=== PATIENT | female | born 1945 | race African-American/Black ===

== ENCOUNTER 2017-01-18 11:47 | Emergency (ER) | payer OTHER, MEDICARE ==
[~2017-01-18] VITALS: Ht 152.4 cm; Wt 77.1 kg
[~2017-01-18 11:47] MED LIST: FOLIC ACID 1 MG PO; MAG-OX 400400 MG PO; NORVASC 5MG TAB5 MG PO; Theragran Vitamins PO; VITAMIN B1100 MG PO
--- NOTE | 2017-01-18 13:25 | RADIOLOGY REPORT ---
EXAMINATION: XR HIP, RIGHT CLINICAL INFORMATION: Right hip pain after fall 4 months ago. Evaluate for old fracture. COMPARISON: None TECHNIQUE: Pelvis, AP view Right hip, AP and frog-leg lateral views FINDINGS: There is degenerative disc space narrowing, vertebral osteophyte formation and facet arthropathy of the lower lumbar spine. The osseous pelvic ring is intact. There is enthesophyte formation in multiple locations, including iliac crests, greater trochanters and ischial tuberosities. No evidence of a recent pelvic bone injury or proximal femoral fracture. At the right hip, there is mild narrowing of superior joint space and osteophyte formation. At the left hip, there is [id number] superior joint space narrowing and osteophyte formation. Peripheral vessels are calcified. Phleboliths are present in the lower pelvis. A row of sutures projects over the midline of the pelvis. IMPRESSION: 1. No evidence of recent osseous injury in the pelvis or proximal femurs. 2. Osteoarthritis of the hips (left slightly worse than right).
[2017-01-18 14:53] VITALS: BP 165/67
[2017-01-18] MEDS ORDERED: BACTRIM DS TAB1 EACH PO (15:08)
--- NOTE | 2017-01-18 15:08 | ED GENERAL ADULT ---
History of Present Illness General Chief Complaint: Lower Extremity Problems Stated Complaint: HIP PAIN XS 4 MONTHS Source: patient Exam Limitations: no limitations Vital Signs & Intake/Output Vital Signs & Intake/Output Vital Signs Date Time Temp Pulse Resp B/P Pulse O2 O2 Flow FiO2 Ox Delivery Rate 01/18 1453 98.3 90 18 165/67 98 Room Air 01/18 1157 98.2 115 16 148/71 99 Room Air Allergies Coded Allergies: NO KNOWN ALLERGIES (11/18/11) Reconcile Medications Ondansetron (Zofran Odt) 4 MG TAB.RAPDIS 1 TAB SL TID nausea Sulfamethoxazole/Trimethoprim (Bactrim Ds Tablet) 800 MG-160 MG TABLET 1 TAB PO BID uti Triage Note: PT STATES SHE FELL A FEW MONTHS AGO AND SHE CONT. TO HAVE RIGHT HIP PAIN. Triage Nurses Notes Reviewed? yes Onset: Abrupt Duration: 4 months Injury Environment: home Severity: moderate, severe No Modifying Factors: none HPI: 71-year-old female comes into emergency room with increasing right hip pain for the past 4 months. Patient had fallen to 4 months ago onto her right hip. Patient has been having pain since then getting progressively worse. She also has had some urinary incontinence for the past week. She denies any head trauma or injury anywhere else on her body. Denies any recent falls or trauma. Patient comes in for further evaluation. Sharp throbbing pain. Continuous. Nonradiating. (DEMIAN DICKENS) Past History Travel History Traveled to [place] past 21 day No Medical History Any Pertinent Medical History? see below for history Cardiovascular: HEART MURMUR History of MRSA: No History of VRE: No History of CDIFF: No Surgical History Surgical History: non-contributory Psychosocial History Who do you live with Son Services at Home None What is your primary language Bulgarian Tobacco Use: Current Daily Use Daily Tobacco Use Amount/Type: => 5 Cigarettes daily ETOH Use: alcoholic Illicit Drug Use: denies illicit drug use Family History Hx Contributory? No (DEMIAN DICKENS) Review of Systems Review of Systems Constitutional: Reports: no symptoms. EENTM: Reports: no symptoms. Respiratory: Reports: no symptoms. Cardiovascular: Reports: no symptoms. GI: Reports: no symptoms. Genitourinary: Reports: see HPI. Musculoskeletal: Reports: see HPI. Skin: Reports: no symptoms. Neurological/Psychological: Reports: no symptoms. Hematologic/Endocrine: Reports: no symptoms. Immunologic/Allergic: Reports: no symptoms. All Other Systems: Reviewed and Negative (DEMIAN DICKENS) Physical Exam Physical Exam General Appearance: well developed/nourished, alert, awake, mild distress Head: atraumatic, normal appearance Eyes: Bilateral: normal appearance, EOMI. Ears, Nose, Throat: normal pharynx, normal ENT inspection, hearing grossly normal Neck: normal inspection, full range of motion Respiratory: no respiratory distress Gastrointestinal: soft, non-tender Extremities: pain with range of motion of right hip, no shortening, Neurologic/Psych: awake, alert, oriented x 3, normal gait, normal mood/affect Skin: intact, normal color Core Measures ACS in differential dx? No CVA/TIA Diagnosis: No Severe Sepsis Present: No Septic Shock Present: No (DEMIAN DICKENS) Progress Differential Diagnoses I considered the following diagnoses in my evaluation of the patient: Arthritis , hip fracture, bursitis, muscle strain, UTI, Plan of Care: Orders Procedure Date/time Status Add-on Test (ER Only) 01/18 1449 Active CULTURE,URINE 01/18 1411 Active URINALYSIS 01/18 1356 Complete Laboratory Tests 01/18/17 1411: Urinalysis LIGHT H, Urine Color YEL, Urine Clarity CLDY H, Urine pH 6.0, Ur Specific [place] <= 1.005, Urine Protein NEG, Urine Ketones NEG, Urine Nitrite NEG, Urine Bilirubin NEG, Urine Urobilinogen 1.0, Ur Leukocyte Esterase LARGE H , Ur Microscopic SEDIMENT EXAMINED, Urine RBC 3-5, Urine WBC > 75 H, Ur Epithelial Cells MOD H, Urine Bacteria MANY H, Urine Hemoglobin SMALL H, Urine Glucose NEG Microbiology 01/18 1411 URINE ROUT: Urine Culture - RECD Diagnostic Imaging: Viewed by Me: Radiology Read. Discussed w/RAD: Radiology Read. Radiology Impression: SERVICE DATE: 01/18/17-1222 EXAM TYPE: RAD - XRY-HIP 2-3 VIEWS, RIGHT EXAMINATION: XR HIP, RIGHT CLINICAL INFORMATION: Right hip pain after fall 4 months ago. Evaluate for old fracture. COMPARISON: None TECHNIQUE: Pelvis, AP view Right hip, AP and frog-leg lateral views FINDINGS: There is degenerative disc space narrowing, vertebral osteophyte formation and facet arthropathy of the lower lumbar spine. The osseous pelvic ring is intact. There is enthesophyte formation in multiple locations, including iliac crests, greater trochanters and ischial tuberosities. No evidence of a recent pelvic bone injury or proximal femoral fracture. At the right hip, there is mild narrowing of superior joint space and osteophyte formation. At the left hip, there is mild-to -moderate superior joint space narrowing and osteophyte formation. Peripheral vessels are calcified. Phleboliths are present in the lower pelvis. A row of sutures projects over the midline of the pelvis. IMPRESSION: 1. No evidence of recent osseous injury in the pelvis or proximal femurs. 2. Osteoarthritis of the hips (left slightly worse than right). DICTATED BY: YOUSUF SOUZA MD DATE/TIME DICTATED:01/18/171317 WEAVING PROFESSOR:HEIDI DATE/TIME TRANSCRIBED:1317 Initial ED EKG: none Comments: 01/18/2017 4:48:23 PM Patient was seen by case management. Patient is to be set up with home health aide. Patient treated for uncomplicated UTI. Patient does not want anything for pain control. Patient will get an evaluation by physical therapy at home. Able to ambulate here. Safe to be discharged this time. Case discussed with Dr. lynn. (DEMIAN DICKENS) Departure Departure Disposition: HOME OR SELF CARE Condition: Stable Clinical Impression Primary Impression: UTI (urinary tract infection) Secondary Impressions: Arthritis Referrals: DANIELLE CANALES,SU Colindres (PCP/Family) Additional Instructions: Take Bactrim as prescribed. Follow-up with your primary care doctor. Return if any concerns worsening symptoms. Please go over all results of today's visit with your primary care doctor. Contact your primary care doctor to let them know you were here in the emergency room. There may be nonspecific findings which may not be related to your visit today here in the emergency room but may require further evaluation and chronic monitoring by your primary care doctor. If you had a laceration today the chance of foreign body always remains. You should follow-up with your primary care doctor for recheck in 3-5 days for a wound check. If you had an x-ray done there is a chance that a fracture could have been missed on initial read and you should follow-up with your primary care doctor for repeat x-rays if symptoms persist. If your blood pressure was elevated here in the emergency room please have rechecked by her primary care doctor within the next 48 hours by your primary care doctor. If you were prescribed a narcotic here in the emergency room or any type of controlled substances you're not allowed to drive while taking this medication or operate any type of heavy machinery. Narcotics can make you feel lightheaded dizziness nausea and can cause constipation. You may need to pharmacy picking tech a stool softener. Thank you for choosing [facility] emergency room. Please return to the emergency room immediately if you have any other concerns worsening of symptoms. Departure Forms: Customer Survey General Discharge Information Prescriptions: Current Visit Scripts Sulfamethoxazole/Trimethoprim (Bactrim Ds Tablet) 1 TAB PO BID #14 TAB Ondansetron (Zofran Odt) 1 TAB SL TID #10 TAB (DEMIAN DICKENS) PA/GENERATING STATION MECHANIC Co-Sign Statement Statement: ED Attending supervision documentation- x I saw and evaluated the patient. I have also reviewed all the pertinent lab results and diagnostic results. I agree with the findings and the plan of care as documented in the PA's/GENERATING STATION MECHANIC's documentation. [] I have reviewed the ED Record and agree with the PA's/GENERATING STATION MECHANIC's documentation. [] Additions or exceptions (if any) to the PAs/GENERATING STATION MECHANIC's note and plan are summarized below: [] (OCTAVIANO CANALES,JANICE) Critical Care Note Critical Care Note Critical Care Time: non-applicable (DEMIAN DICKENS)
[2017-01-18] MEDS ORDERED: ZOFRAN ODT4 M1 SL (15:30)
--- NOTE | 2017-01-18 16:20 | NUR ---
Case Mgmnt TSF: I had gone in and introduced myself to patient and son. They are fine with whatever HHS we choose. I gave them our brochure and my card. I set them with up with [facility] for start of service on 01/19/17. I asked them for RN, PT and EDUCATIONAL GUIDANCE COUNSELOR. I spoke with Brianna. I faxed over all clinical and received fax confirmation back. CM complete.
== END 2017-01-18 15:25 ==
LOC: ERH 11:47
DX: N39.0 Urinary tract infection, site not specified (principal); M16.11 Unilateral primary osteoarthritis, right hip
CPT/HCPCS: 73502-RT; 81001; 87086

== ENCOUNTER 2017-01-19 16:01 | Inpatient (IN) | payer OTHER, MEDICARE ==
[~2017-01-19] VITALS: Ht 152.4 cm; Wt 77.1 kg
[~2017-01-19 16:01] MED LIST changes: +BACTRIM DS TAB1 EACH PO; +ZOFRAN ODT4 M1 SL
--- NOTE | 2017-01-19 16:19 | NUR ---
PT TO TRIAGE WITH C/O R HIP PAIN S/P R HIP GAVE UP AND SHE FELL LAST NIGHT. PT DENIES HEAD STRIKE. PT WAS SEEN HERE IN ER YESTERDAY BEFORE FALL FOR R HIP PAIN.
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
--- NOTE | 2017-01-19 19:09 | NUR ---
PT SEEN BY GENO MEJIA. PLAN TO KEEP IN ED UNTIL PHYSICAL THERAPY EVAL CAN BE DONE IN THE AM. INFORMED PT WE WILL MOVE HER TO A ROOM WHEN AVAILABLE.
--- NOTE | 2017-01-19 19:09 | NUR ---
TWO ATTEMPTS MADE BY TEENA OG FOR LAB WORK. PT DIFFICULT IV STICK
--- NOTE | 2017-01-19 19:57 | NUR ---
PT INCONTINENT OF URINE. WEARING DEPENDS. PT STOOD PIVOTED TO STRETCHER WITH TWO PERSON MODERATE ASSIST. PT HAD DIFFICULTY GOING FROM SIT TO STAND AND HAD DIFFICULTY TURNING TO GET ONTO STRETCHER. [facility] DONE AND PT CHANGED INTO HOSPTIAL GOWN. BLUE PAD PLACED UNDER PT. RED SOCKS PLACED ON PT DUE TO HIGH RISK FOR FALLS. PT NOTED TO HAVE OVERGROWN TOE NAILS AND DRY FLAKY SKIN UNDER SOCKS SHE WAS WEARING. PT STATES SHE CANNOT CHANGE SOCKS OR BATH HER FEET
[2017-01-19 20:19] LABS: ABSOLUTE BASOPHIL COUNT 0 /CUMM (0.0-0.2); ABSOLUTE EOSINOPHIL COUNT 0.1 /CUMM (0.0-0.7); ABSOLUTE GRANULOCYTE CT 5.4 /CUMM (1.4-6.5); ABSOLUTE LYMPH COUNT 1.4 /CUMM (1.2-3.4); ABSOLUTE MONOCYTE COUNT 0.4 /CUMM (0.10-0.60); BASOPHIL % 0 % (0.0-2.0); EOSINOPHIL % 1.3 % (0-5); GRANULOCYTE % 73.6 % (42.2-75.2); HEMATOCRIT 25.5 % (37-47); MEAN CORPUSCULAR HGB 30.1 PG (27.0-31.0); MEAN CORPUSCULAR VOLUME 94.2 FL (81.0-99.0); MEAN PLATELET VOLUME 7.2 FL (7.4-10.4); PLATELET COUNT 257 /CUMM (130-400); RBC DISTRIBUTION WIDTH 22.2 % (11.5-14.5); RED BLOOD CELL CT 2.71 /CUMM (4.20-5.40); WHITE BLOOD CELL COUNT 7.3 /CUMM (4.8-10.8)
--- NOTE | 2017-01-19 21:26 | NUR ---
PT MOVED TO ROOM 2. AND TRANSFERRED TO HOSP BED
--- NOTE | 2017-01-19 21:33 | CT SCAN REPORT ---
EXAMINATION: CT PELVIS WITHOUT CONTRAST CLINICAL INFORMATION: Fall, unable to bear weight COMPARISON: CT 03/22/2014 TECHNIQUE: Helical scanning was performed with submillimeter collimation through the pelvis. Sagittal and coronal multiplanar 2-D reconstructions were obtained. FINDINGS: This exam is demonstrating sclerotic change in the inferior ischium on the left near the midline pubic bone. This is new from 2013. Findings suggest stress injury or subacute fracture. No acute fracture is seen here. There is significant degeneration in the left hip with degenerative cystic formation on both sides of the joint. More mild change in the right hip. In the pelvis once again prominent uterus for age lies to the left of midline. No free fluid in the deep pelvis. Some mild adenopathy once again seen. IMPRESSION: Findings in the left ischium near the pubic bone as described above. Suggest stress fracture or subacute healing fracture. No convincing evidence for an acute fracture here. Significant degeneration left hip..
[2017-01-19 21:45] VITALS: BP 180/72
--- NOTE | 2017-01-19 21:52 | History & Physical ---
YUKI CANALES,[facility] 01/19/172: General Information and HPI History of Present Illness: Ms. Arroyo is a 71-year-old lady with a PMH signifciant for ETOH abuse, GERD, diverticulosis, HTN, morbid obesity s/p gastric bypass in 2003, last admitted to [facility] in 2013 for decompensation, who presents with progressively worsening right hip pain and weakness for the past month. She presented to [facility] ED yesterday with the same chief complaint and was sent home on Bactrim for UTI upon a negative hip x-ray. Following the discharge last night patient had an episode of a mechanical fall when her her legs gave out and landed on her right hip. Denies any chest pain, palpitations, dizziness or lightheadedness prior to the fall and at the time of interview. No loss of consciousness or head trauma. Prior to this episode, most recently fell about 4 months ago. Has been home since then and never sought medical attention. Uses no walkign aids at baseline. For the past month, her ambulation has been decreasing due to weakness. She has been receiving home physical therapy until it got discontinued recently because her doctor signed off after patient failed to follow up since 2013. Patient's son brought the patient back to the ED today in concern for her unsafe ambulation in the context of recurrent falls and worsening weakness. ROS signifcant for dysuria for a few days and chronic urinary incontinence at baseline. On , patient lives at home alone. She drinks 1.5-2 pines of alcohol everyday. She is a chronic drinker/smoker (1 PPD). She went through rehab many years ago without success. Denies illicit drug use. CT scan done in ED revealed stress injury or subacute fracture in the left hip but no acute fracture is seen here. 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 She was admitted for evaluation of weakness and intratable pain in the right hip. This exam is demonstrating sclerotic change in the inferior ischium on the left near the midline pubic bone. This is new from 2014. Findings suggest stress injury or subacute fracture. No acute fracture is seen here. There is More mild change in the right hip. In the pelvis once again prominent uterus for age lies to the left of midline. No free fluid in the deep pelvis. Some mild adenopathy once again seen. PCP - Dr. Santos Full code. Allergies/Medications Allergies: Coded Allergies: Penicillins (Intermediate, HIVES 01/19/17) Home Med list Ondansetron (Zofran Odt) 4 MG TAB.RAPDIS 1 TAB SL TID nausea Sulfamethoxazole/Trimethoprim (Bactrim Ds Tablet) 800 MG-160 MG TABLET 1 TAB PO BID uti Past History Travel History Traveled to [place] past 21 day No Medical History Cardiovascular: HEART MURMUR History of MRSA: No History of VRE: No History of CDIFF: No Surgical History Surgical History: non-contributory Past Family/Social History Psychosocial History Where do you live? Home Services at Home: None ETOH Use: heavy use Review of Systems Review of Systems Constitutional: Reports: see HPI. Exam & Diagnostic Data Last 24 Hrs of Vital Signs/I&O Vital Signs Date Time Temp Pulse Resp B/P B/P Pulse O2 O2 Flow FiO2 Mean Ox Delivery Rate 01/20 2148 98.9 120 20 180/72 96 Room Air 01/19 2145 98.9 120 20 180/72 01/198 Room Air 01/19 1618 97.3 99 18 195/75 98 Room Air Physical Exam General Appearance Alert, Oriented X3, Cooperative, No Acute Distress Skin No Rashes, No Breakdown, No Significant Lesion HEENT Atraumatic, PERRLA, EOMI Neck Supple, No JVD, No thryomegaly Cardiovascular Regular Rate, Normal S1, Normal S2, No Murmurs, Gallops, Rubs Lungs Clear to Auscultation, Normal Air Movement Abdomen Normal Bowel Sounds, Soft, No Tenderness Neurological Normal Speech, Sensation Intact, Cranial Nerves 3-12 NL, Strength 1 -2 out of 5 in RLE due to severe pain Extremities No Cyanosis, Trace edema in BLE, Mild erythema in distal LLE, TTP in R hip Vascular Normal Pulses, Pulses Symmetrical Assessment/Plan Assessment: Ms. Arroyo is a 71-year-old lady with a PMH signifciant for ETOH abuse, GERD, diverticulosis, HTN, morbid obesity s/p gastric bypass in 2003, last admitted to [facility] in 2013 for decompensation, who presents with progressively worsening right hip pain and weakness for the past month. # Intractable hip pain CT scan done in ED revealed stress injury or subacute fracture in the left hip but no acute fracture is seen here. 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 * Admit to service * Vitals per protocol * Adequate pain control * MRI of the hip to r/o fracture * Repeat right hip x-ray since she fell again * Ortho consult * PT consult # UTI * Cont Bactrim 1 tab BID (started on 01/18) * Keep monitoring for signs of infection * Follow urine culture and blood cultures # HTN Patient carries a h/o HTN but stopped taking antihypertensives at home. May be further elevated currently due to alcohol withdrawal vs. pain. * Give Norvasc 5mg PO once for now and keep monitoring * Control pain and give Ativan as needed per [facility] # Alcohol abuse * Ativan per [facility] protocol * Monitor BP closely # Chronic anemia H/H has been downtrending since 2013. Fe studies at that time normal. There may be component of EtOH abuse. * Repeat iron studies * Check CBC daily, trend H/H - transfuse if Hgb < 8 - Heart healthy diet - Moderate pain pathway - DVTppx with [facility] - Full code. As Ranked By This Provider Problem List: 1. UTI (urinary tract infection) 2. Arthritis 3. Chronic hip pain 4. Gait instability Core Measures/Miscellaneous Acute Coronary Syndrome ACS Diagnosis: No Cerebrovascular Accident CVA/TIA Diagnosis: No Congestive Heart Failure CHF Diagnosis: No Venous Thromboembolism VTE Risk Factors: Age > 40 No [facility] VTE prophylaxis d/t: LE Injury, current No VTE Pharm Prophylaxis d/t: No contraindications VTE Diagnosis: No VTE Type: NONE VTE Confirmed by (Test): NONE Severe Sepsis Severe Sepsis Present: No Septic Shock Septic Shock Present: No Miscellaneous Documentation Attending Case Discussed With: Dr. Arroyo Primary Care Physician: SU SANTOS MD Patient sees these Specialists HPI Level of Patient Care: General Medicine GRAZYNA CANALES,JLUIS 01/19/178: Resident Review Statement Resident Statement: examined this patient, discussed with landscape maintenance internship Other Findings: Patient is a 71-year-old lady whose medical issues include morbid obesity, 60+ pack year smoking history currently smoking 1 pack per day, daily 2 pints of alcohol use no history of withdrawal seizures presents to the emergency room after a fall. She states that her initial fall was 4 months ago and she fell on the right hip. She has been doing okay at home ambulating independently. Yesterday she felt weak and had a fall came to the emergency room for evaluation. She was discharged with home physical therapy, while she was here yesterday she also complained of hesitancy and burning subsequently found to have a UTI which is currently being treated with Bactrim. States that yesterday after she got discharged from the hospital she fell again at 2 AM while trying to use the bathroom. The home health aide saw her this morning and home PT was unwilling to work with her given her recurrent falls and recommended that she come to the emergency room for further evaluation. Her only complaint at present is right hip pain. Denies any chest pain, shortness of breath, nausea, vomiting, diarrhea fevers or chills. Also admits to burning and increased urinary frequency. Physical exam Blood pressure 180/72, pulse rate 120, chest abdomen and lung exam is benign; tenderness to palpation over right hip, positive SLR on the right at 15, decreased flexion of the right hip, pulses are normal and intact, 2+ lower extremity edema bilaterally EKGs within normal limits, no change since previous recent Labs are within normal limits, AST to ALT ratio 2:1, alcohol level less than 10 CAT scan of the pelvis is suggestive of stress fracture in the left ischium or the pubic bone, significant degeneration of left Assessment- 1. Hip pain, likely secondary to subacute left ischium stress injury or fracture 2. Urinary tract infection 3. Morbid obesity 4. Chronic nicotine abuse 5. Chronic alcohol use 6. Chronic anemia 7. Hypokalemia Plan- GEN med admit Vitals per protocol PT evaluation in the morning Follow urine culture (sent on 01/18/2017) IV ceftriaxone 1 gm q 24 Pain management CIWA protocol Nicotine patch 21 mcg daily Replete potassium Add on Magnesium, TSH, free T4, B12, folic acid, Vit D Pain pathway Regular diet DVT PPX with SC heparin Full code DAHLIARACHELLE 01/20/17 0212: Attending MD Review Statement Attending Statement Attending MD Statement: examined this patient, discuss w/resident/PA/CHARGE AUTHORIZER, agreed w/resident/PA/CHARGE AUTHORIZER, reviewed EMR data (avail), reviewed images, amended to note Attending Assessment/Plan: CC: right hip pain, unable to ambulate PMH: Alcoholism, diverticulosis, hypertension, history of gastric bypass surgery , GERD, noncompliance, currently not on any medications Patient was in ER yesterday for right hip pain, chronic in nature, had a fall 4 months back, has been ambulating less since then, her sons insisted to go to ER so she came to ER yesterday. She was evaluated with right hip x-ray, was sent home on home health services. After going home patient had another fall, accidental, again right hip pain worsened so she came to ER. At baseline patient mostly in on recliner, couch, ambulates to bathroom by herself but since yesterday she was requiring 2 assistance to go to bathroom. She was diagnosed to have hypertension in the past, stopped taking medications since unknown duration. She does not take any vitamin supplementations after gastric bypass surgery, does not follow with PCP. She denies any chest pain, palpitations, shortness of breath, headache, loss of consciousness, dizziness before or after fall. Denies any abnormal bleeding in bowel movement, vaginal bleed, blood in urine, no history of vomiting. Significant alcohol and smoking history Vitals: Afebrile, mild tachycardia, hypertensive 195/75, saturating well on room air On exam: A O 3, cooperative, no acute distress, neck supple, no JVD, no lymphadenopathy, mucosa moist, no focal neurological deficit, no tremors, +2 pitting edema bilateral lower extremities, mild redness on right lower extremity over her banks otherwise no obvious skin rashes or inflammation, right hip movement is restricted with active range of motion, tenderness lateral side of hip, not on groin, no warmth or redness. CVS: S1-S2, RRR. RS: Clear to auscultate bilaterally. Abdomen: Soft, NT, ND, bowel sounds present. Labs: Hemoglobin 8.2, RDW 22.7, MCV 94.2, platelet 257, BUN 5, magnesium 1.3, alkaline phosphatase 190. Otherwise BMP, LFT unremarkable Pelvic CT: 1. Findings in the left ischium near the pubic bone as described above. Suggest stress fracture or subacute healing fracture. No convincing evidence for an acute fracture here. Significant degeneration left hip. 2. prominent uterus for age lies to the left of midline. Some mild adenopathy once again seen. A and P Patient has intractable pain in right hip, after trauma. Even though x-ray done yesterday when in ER did not show any acute changes, patient had a fall again. CT pelvis mentions subacute healing fracture on left ischium, which may not be contributing to this pain. Patient is also found to have UTI, with symptoms of urinary frequency and burning, and urine positive for gram-negative rods. # Right hip pain: ? Bursitis, ? Musculoskeletal r/o fracture # UTI with cystitis # Alcoholism # Morbid obesity # Anemia # Noncompliance with history of hypertension # History of gastric bypass surgery - Admit to general medicine - Adequate pain control - Repeat x-ray right hip - Consider MRI if right hip x-rays normal - OT PT evaluation - Orthopedic consult - Continue Bactrim by mouth for UTI - Small dose CCB, for hypertension. - Obtain iron studies - Watch for alcohol withdrawal: When necessary and scheduled Ativan according to CIWA score, by mouth thiamine, folic acid, vitamin B12, vitamin D supplementation - Patient has elevated alkaline phosphatase, increased total proteins and globulin, significant anemia: Consider SPEP and UPEP inpatient versus outpatient for further evaluation - Case management consult for short-term rehabilitation versus home health services
--- NOTE | 2017-01-19 22:04 | NUR ---
PT INCONTINENT OF URINE. PT UNABLE TO VOID ON BEDPAN FOR SPECIMEN. PT REFUSING IN AND OUT CATH FOR URINE SPECIMEN. DR ZAMORA AWARE
--- NOTE | 2017-01-19 22:05 | NUR ---
IV STARTED BY SOBIA LORENZO
[2017-01-20] VITALS (9 sets, daily range): BP systolic 124–200; BP diastolic 58–90
--- NOTE | 2017-01-20 00:07 | NUR ---
report to jose LORENZO
--- NOTE | 2017-01-20 02:14 | Admission Certification ---
Admission Certification Certification Statement - As attending physician, I certify that at the time of - admission, based on clinical presentation, severity of - symptoms, need for further diagnostic testing and - therapeutic interventions, and risk of adverse outcomes - without in-hospital treatment, in my clinical assessment, - this patient requires an acute hospital stay for a minimum - of two nights or longer. I have also considered psychsocial - factors such as support system, advanced age, financial - issues, cognitive issues, and failed out-patient treatments, - past re-admission history, safety of patient, and lack of - compliance as applicable. Specific rationale supporting this admission is: Right hip pain, unable to ambulate
--- NOTE | 2017-01-20 08:30 | NUR ---
PT LEFT FLOOR VIA STRETCHER TO X-RAY.
--- NOTE | 2017-01-20 09:20 | PN- Housestaff ---
See Addendum VANGIE CANALES,ISMAIL 01/20/17 0919: Subjective Follow-up For: # Right hip pain: # UTI with cystitis # Alcoholism # Morbid obesity # Anemia # Noncompliance with history of hypertension # History of gastric bypass surgery Subjective: Afebrile with multiple WBCs. Elevated blood pressure, she is not on any antihypertensive medication for long time. Patient reported polyuria overnight. Her pain is well controlled, pain only gets aggravated when she tried to ambulate. He shouldn't denies any other current complaints. Review of Systems Constitutional: Reports: no symptoms. Objective Last 24 Hrs of Vital Signs/I&O Vital Signs Date Time Temp Pulse Resp B/P B/P Pulse O2 O2 Flow FiO2 Mean Ox Delivery Rate 01/20 0946 100 160/70 97 Room Air 01/20 0800 Room Air 01/20 0638 99.1 102 20 176/74 95 Room Air 01/20 0600 98.4 78 18 182/74 01/20 0400 98.4 78 18 182/74 01/20 0259 70 182/74 01/20 0200 98.4 78 18 200/90 01/20 0152 200/90 01/20 0030 98.4 78 20 200/90 94 Room Air 01/19 2148 98.9 120 20 180/72 96 Room Air 01/19 2145 98.9 120 20 180/72 01/19 2128 Room Air 01/19 1618 97.3 99 18 195/75 98 Room Air Intake & Output 01/20 1600 01/20 0800 01/20 0000 Intake Total 300 Output Total 100 Balance -100 300 Intake, IV 200 Intake, Oral 100 Number 1 0 Bowel Movements Output, Urine 100 Patient 77.111 kg 77.111 kg Weight Weight Reported by Patient Reported by Patient Measurement Method Physical Exam General Appearance: Alert, Oriented X3, Cooperative, No Acute Distress HEENT: Atraumatic, PERRLA, EOMI, Mucous Membr. moist/pink Cardiovascular: Regular Rate, Normal S1, Normal S2, No Murmurs Lungs: Clear to Auscultation, Normal Air Movement Abdomen: Soft, No Tenderness Neurological: Normal Speech, he did range of motion on the right hip because of pain Extremities: No Clubbing, No Cyanosis, No Edema Current Medications: Current Medications Sig/Faiza Start time Last Medication Dose Route Stop Time Status Admin Acetaminophen 650 MG Q6P PRN 01/19 2245 AC PO Acetaminophen/ 1 TAB Q6P PRN 01/19 2245 AC Hydrocodone Bitart PO Amlodipine Besylate 5 MG ONCE ONE 01/20 0100 DC 01/20 PO 01/20 0101 0152 Calcium 600 MG BID 01/20 1000 AC PO Cholecalciferol 2,000 IU DAILY 01/20 1000 AC 01/20 PO 0937 Cyanocobalamin 1,000 MCG DAILY 01/20 1000 AC 01/20 PO 0937 Cyanocobalamin 1,000 MCG ONCE ONE 01/20 0930 DC IM 01/20 0931 Ergocalciferol 50,000 IU Q168 01/20 1000 AC 01/20 PO 0940 Ferrous Sulfate 325 MG DAILY 01/20 1000 AC PO Folic Acid 1 MG DAILY 01/20 1000 AC 01/20 PO 0937 Heparin Sodium 5,000 UNIT Q8 01/20 0600 AC 01/20 (Porcine) SC 0527 Lorazepam 0 Q1P PRN 01/19 2245 AC IV Magnesium Sulfate 1 GM Q2H 01/20 0015 DC 01/20 Dextrose/Water 100 ML IV 01/20 0414 0245 Multivitamins 1 TAB DAILY 01/20 1000 AC 01/20 PO 0937 Nicotine 21 MG DAILY 01/20 1000 AC TOP Oxycodone/ 2 TAB Q6P PRN 01/19 2245 AC Acetaminophen PO Potassium Chloride 0 .STK-MED ONE 01/19 2258 DC PO Potassium Chloride 40 MEQ ONCE ONE 01/19 2245 DC 01/19 PO 01/19 2246 225 Thiamine HCl 100 MG DAILY 01/20 1000 AC 01/20 PO 0937 Trimethoprim/ 1 TAB BID 01/20 1000 AC 01/20 Sulfamethoxazole PO 0936 Trimethoprim/ 0 .STK-MED ONE 01/19 1914 DC Sulfamethoxazole PO Trimethoprim/ 1 TAB ONCE ONE 01/19 1900 DC 01/19 Sulfamethoxazole PO 01/19 1901 191 Last 24 Hrs of Lab/Timo Results Last 24 Hrs of Labs/Mics: Laboratory Tests 01/19/17 2004: Anion Gap 15, Estimated GFR > 60, BUN/Creatinine Ratio 7.1, Glucose 91, Calcium 7.9 L, Magnesium 1.3 L, Iron 33 L, TIBC 421, Ferritin 10.5 L, Total Bilirubin 1.1, AST 45 H, ALT 25, Alkaline Phosphatase 190 H, Total Protein 8.8 H, Albumin 4.2, Globulin 4.6 H, Albumin/Globulin Ratio 0.9 L, Vitamin B12 195 L, 25-OH Vitamin D Total 4.9 L, Folate 3.5, TSH 1.960, Free T4 1.26, CBC w Diff NO MAN DIFF REQ, RBC 2.71 L, MCV 94.2, MCH 30.1, RDW 22.2 H, MPV 7.2 L, Gran % 73.6, Lymphocytes % 19.8 L, Monocytes % 5.3, Eosinophils % 1.3, Basophils % 0 L, Absolute Granulocytes 5.4, Absolute Lymphocytes 1.4, Absolute Monocytes 0.4, Absolute Eosinophils 0.1, Absolute Basophils 0, PUBS MCHC 32.0 L , Serum Alcohol < 10.0 Microbiology 01/19 2355 BLOOD: Blood Culture - RECD 01/19 2350 BLOOD: Blood Culture - RECD Assessment/Plan Assessment: # Intractable hip pain CT scan done in ED revealed stress injury or subacute fracture in the left hip but no acute fracture is seen here. 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 * Percocet 2 tablets by mouth every 6 when necessary or pain 7-10 * V codeine 1 tablet E0 every 6 urine for pain 4-6 * Acetaminophen 650 mg by mouth every 6 when necessary for pain less than 4 * Three-view right hip X-ray, Zoloft pending * We'll follow PT and orthopedic recommendations # UTI * Continue Bactrim 1 tab BID (started on 01/18) * Keep monitoring for signs of infection * Follow urine culture and blood cultures # HTN He has a history of hypertension , she is not on medication for long time. Her blood pressure is improving without and hypertensive medication, however it still above 160. Part of this can be from alcohol detox * Will start metoprolol 12.5 mg twice a day. * Hold medication for blood pressure less than 100 # Alcohol detox * Ativan per [facility] protocol * Multivitamin, folic acid, thiamine. * Monitor BP closely #Normocytic anemia Patient has a low ferritin and serum iron(supposed to be microcytic), she also has a low B12(supposed to give microcytic) most likely the makes of these 2 give her normocytic anemia. * We will start iron supplement * We will start B12 supplement * Check CBC daily and follow anemia and infection Heart healthy diet Moderate pain pathway DVTppx with [facility] Full code. Problem List: 1. Gait instability 2. Arthritis 3. UTI (urinary tract infection) Pain Ratin Pain Location: right hip Pain Goal: Remain pain free Pain Plan: See assessment and plan Tomorrow's Labs & Rationales: CBC BRITTNY CUNNINGHAM 01/20/17 1057: Attending MD Review Statement Attending Statement Attending MD Statement: examined this patient, discuss w/resident/PA/EMBLEM CUTTER, agreed w/resident/PA/EMBLEM CUTTER, discussed with family, reviewed EMR data (avail), discussed with nursing, discussed with case mgmt, reviewed images, amended to note Attending Assessment/Plan: "Patient has intractable pain in right hip, after trauma. Even though x-ray done yesterday when in ER did not show any acute changes, patient had a fall again. CT pelvis mentions subacute healing fracture on left ischium, which may not be contributing to this pain. Patient is also found to have UTI, with symptoms of urinary frequency and burning, and urine positive for gram-negative rods. " ASSESSMENT # Right hip pain s/p trauma and fall. # UTI with cystitis # Alcoholism # Morbid obesity BMI 33.2 # Anemia multifactorial iron defeciency, Vit B12 defeciency. # History of gastric bypass surgery # Hypocalcemia # Hypomagnesemia. # Generalised weakness/physical deconditioning. # Noncompliance with history of hypertension PLAN - pain control - OT PT evaluation - Orthopedic consult - f/u urine C/S and c/w PO bactrim. - correct lytes, added thiamine, folic acid, vitamin B12, vitamin D supplementation, calcium. - consult dietitian. - Case management consult for short-term rehabilitation versus home health services
--- NOTE | 2017-01-20 09:31 | NUR ---
THIS RN SPOKE WITH PATIENTS MIREYA IBARRA WHO LIVES IN [place] WHO EXPRESSED CONCERN FOR THE PATIENT'S SONS BRINGING THE PATIENT ETOH. THIS RN NOTIFIED MD VENCES, SPOKE WITH NURSING MANAGERS, AND OTHER STAFF MEMBERS ON THE FLOOR- WILL MONITOR THE PATIENT CLOSELY.
--- NOTE | 2017-01-20 09:42 | NUR ---
PT ARRIVED TO FLOOR VIA STRETCHER FROM X-RAY. WILL CONTINUE TO MONITOR.
--- NOTE | 2017-01-20 11:46 | RADIOLOGY REPORT ---
EXAMINATION: XR HIP, RIGHT CLINICAL INFORMATION: Recurrent fall. Evaluate for fracture. COMPARISON: Right hip films from 01/18/2017. TECHNIQUE: Frontal view of the pelvis and both hips. Coned-down frontal and frog-leg lateral view of the right hip. FINDINGS: No acute fracture or dislocation of the hips. Evaluation of the sacrum suboptimal due to overlapping structures. Both femoral heads normally located within the acetabula. Moderate degenerative change seen in the left hip joint and mild degenerative changes in the right hip joint with superior joint space narrowing, subchondral sclerosis and cystic changes seen. Sacroiliac joints and pubic symphysis intact and unremarkable. Enthesophyte formation seen along the iliac spines, pubic symphysis, and greater trochanters, unchanged. Mild degenerative spondylosis and moderate facet arthropathy are seen in the lower lumbar spine. Right paramedian pelvic wall sutures are in place. Pelvic phleboliths and arterial calcifications are noted. IMPRESSION: 1. No acute fracture or dislocation of the hips. 2. Moderate left and mild right sided degenerative joint disease involving both hips. 3. Diffuse idiopathic changes.
--- NOTE | 2017-01-20 20:38 | Cons- Orthopedic ---
General Information and HPI Consulting Request Date of Consult: 01/20/17 Requested By: BRITTNY CUNNINGHAM MD Reason for Consult: Right hip pain Source of Information: patient Exam Limitations: no limitations History of Present Illness: Patient is a 71-year-old woman who has history of multiple falls who complains of right hip pain. She was admitted for unrelated medical reasons and was found to have findings on CT scan consistent with a pelvic fracture on the left side. However, she complains only of the right hip. Pain is worsened with weightbearing and activities. No previous hip problems on the right side. Allergies/Medications Allergies: Coded Allergies: Penicillins (Intermediate, HIVES 01/19/17) Home Med List: Ondansetron (Zofran Odt) 4 MG TAB.RAPDIS 1 TAB SL TID nausea Sulfamethoxazole/Trimethoprim (Bactrim Ds Tablet) 800 MG-160 MG TABLET 1 TAB PO BID uti Past History Medical History Blood Transfusion Hx: No Neurological: NONE EENT: NONE Cardiovascular: hypertension, HEART MURMUR Respiratory: NONE Gastrointestinal: diverticulitis, GERD Hepatic: NONE Renal: NONE Musculoskeletal: NONE Psychiatric: alcohol dependence Endocrine: NONE Blood Disorders: NONE Cancer(s): NONE MANAGER FLOAT/Reproductive: NONE Surgical History Pertinent Surgical History: non-contributory Psychosocial History Where Do You Live? Home Services at Home: None Smoking Status: Current Everyday Smoker ETOH Use: heavy use Exam & Diagnostic Data Vital Signs and I&O Vital Signs Date Time Temp Pulse Resp B/P B/P Pulse O2 O2 Flow FiO2 Mean Ox Delivery Rate 01/20 1505 Room Air 01/20 1431 100 138/60 01/20 1411 99.1 100 20 138/60 99 Room Air 01/20 0946 100 160/70 97 Room Air 01/20 0800 Room Air 01/20 0638 99.1 102 20 176/74 95 Room Air 01/20 0600 98.4 78 18 182/74 01/20 0400 98.4 78 18 182/74 01/20 0259 70 182/74 01/20 0200 98.4 78 18 200/90 01/20 0152 200/90 01/20 0030 98.4 78 20 200/90 94 Room Air 01/19 2148 98.9 120 20 180/72 96 Room Air 01/19 2145 98.9 120 20 180/72 01/198 Room Air Intake & Output 01/20 1600 01/20 0800 01/20 0000 01/19 1600 01/19 0800 01/19 0000 Intake Total 480 300 Output Total 200 Balance 280 300 Intake, IV 0 200 Intake, Oral 480 100 Number 3 0 Bowel Movements Output, Urine 200 Patient 170 lb 170 lb Weight Weight Reported by Patient Reported by Patient Measurement Method Physical Exam: Patient was found in the supine position in bed. She appeared to be comfortable. Examination of the right lower extremity revealed no rotatory deformity. No leg length discrepancy. Nodefinite external trauma to the right side. Calf soft slightly sensitive to outpatient bilaterally. Gentle logroll internal and external rotation did not exacerbate her pain. Heel percussion did not cause any pain. Normal symmetric pulses distally. Normal gross sensation distally Imaging Results: I reviewed x-rays and CT scan. These revealed no definite acute fracture. There is appears to be subacute insufficiency fracture/stress fracture in the issue him on the left. There does appear to be irregularity on the right subtrochanteric area but I'm not sure whether this is artifact or real. Assessment/Plan Assessment/Plan Right hip pain-the plain x-rays and CT scan have not been definitive and patient has mechanical pain involving the right hip. I feel that she should have further evaluation including MRI to rule out an occult fracture or other lesion. Consult Acknowledgment - Thank you for your consult request.
[2017-01-21] VITALS (7 sets, daily range): BP systolic 120–146; BP diastolic 58–80
--- NOTE | 2017-01-21 00:49 | NUR ---
0030 PT FOUND TO BE SMOKING A CIGARETTE IN HER ROOM. CONFISCATED CIGARETTES AND GUN STOCK CHECKER. THEY ARE IN MED ROOM DRAWER. EDUCATED PT ON OUR POLICY. PT AGGITATED THAT CIGARETTES WERE TAKEN. EXPLAINED SHE WILL GET THEM UPON DISCHARGE. WILL MONITOR.
--- NOTE | 2017-01-21 07:20 | Discharge Summary ---
See Addendum Visit Information Visit Dates Admission Date: 01/19/17 Discharge Date: 01/23/17 Hospital Course Course Attending Physician: MARISA CANALES,BRITTNY Primary Care Physician: DANIELLE CANALES,SU [place] Hospital Course: This is a 71-year-old female with no significant past medical history except for acute and over alcohol consumption, who presented to the [facility] for very nonspecific complaints of pain in the right hip and generalized weakness. She was seen in the ER one night before admission and was sent home on antibiotics for UTI. Patient had a fall 4 months back, has been ambulating less since then, her sons insisted to go to ER so she came to ER . She was evaluated with right hip x-ray, was sent home on home health services. After going home patient had another fall, accidental, again right hip pain worsened so she came to ER. At baseline patient mostly in on recliner, couch, ambulates to bathroom by herself but since yesterday she was requiring 2 assistance to go to bathroom. She was diagnosed to have hypertension in the past, stopped taking medications since unknown duration. She does not take any vitamin supplementations after gastric bypass surgery, does not follow with PCP. She denies any chest pain, palpitations, shortness of breath, headache, loss of consciousness, dizziness before or after fall. Denies any abnormal bleeding in bowel movement, vaginal bleed, blood in urine, no history of vomiting. Significant alcohol and smoking history Vitals: Afebrile, mild tachycardia, hypertensive 195/75, saturating well on room air On exam: A O 3, cooperative, no acute distress, neck supple, no JVD, no lymphadenopathy, mucosa moist, no focal neurological deficit, no tremors, +2 pitting edema bilateral lower extremities, mild redness on right lower extremity over her banks otherwise no obvious skin rashes or inflammation, right hip movement is restricted with active range of motion, tenderness lateral side of hip, not on groin, no warmth or redness. CVS: S1-S2, RRR. RS: Clear to auscultate bilaterally. Abdomen: Soft, NT, ND, bowel sounds present. Labs: Hemoglobin 8.2, RDW 22.7, MCV 94.2, platelet 257, BUN 5, magnesium 1.3, alkaline phosphatase 190. Otherwise BMP, LFT unremarkable The patient was admitted in the hospital and was treated for the following problems 1. Acute healing fracture of the right hip 2. Subacute/stress fracture of the left hip 3.Acute urinary tract infection 4.MORBID OBESITY 5.Alcohol dependence 6. 1.8 cm mass on the cervix Hospital courses She was evaluated by orthopedics who did not feel that the patient has had any acute fractures for the left hip. We performed a MRI which showed Right healing fracture. After discussion of the options with the patient's family,patient and the orthopedics surgeon , patient was still not ready to consent to surgery stating for now that she does not want surgery on her hip. With respect to nonoperative management we did discuss prolonged weightbearing restrictions not allowing the patient weight-bear on the right lower extremity at all and that this would essentially restrict her to an out of bed to wheelchair existence, probably for several months.The patient was in agrrement for the conservative approach for the fracture. The patient seemingly will require transfer to a assisted facility for a while unless adequate home services and home support can be provided. The patient should be seen by Dr Lam in ([facility]) in about 3 weeks so that she can undergo repeat x-rays of the right hip to check the status of potential fracture healing activity. The patient or SNF should contact the office to have the patient seen sooner than this if there is any other concerns or problems that arise before then. For patient UTI she completed the 3 days of abx therapy with [id number]. Last dose of ABX was 01/21/17. On pelvic MRI she was found to have: Nonspecific 1.8 cm focal signal change within the cervix, not optimally characterized. Followup pelvic ultrasound may be considered for further full detail evaluation. Patient was instructed to follow with gynecology post discharge to further address this nonspecific finding. She would benfit from [facility] for regaing her Physical strength. Allergies: Coded Allergies: Penicillins (Intermediate, HIVES 01/19/17) Pertinent Lab Results: Laboratory Tests 01/23 0725 Chemistry Sodium (137 - 145 mmol/L) 140 Potassium (3.5 - 5.1 mmol/L) 4.1 Chloride (98 - 107 mmol/L) 110 H Carbon Dioxide (22 - 30 mmol/L) 21 L Anion Gap (5 - 16) 9 BUN (7 - 17 mg/dL) 6 L Creatinine (0.5 - 1.0 mg/dL) 0.9 Estimated GFR (>60 ml/min) > 60 BUN/Creatinine Ratio (7 - 25 %) 6.7 L Hematology CBC w Diff MAN DIFF ORDERED WBC (4.8 - 10.8 /CUMM) 4.7 L RBC (4.20 - 5.40 /CUMM) 2.63 L Hgb (12.0 - 16.0 G/DL) 8.0 L Hct (37 - 47 %) 24.8 L MCV (81.0 - 99.0 FL) 94.4 MCH (27.0 - 31.0 PG) 30.3 RDW (11.5 - 14.5 %) 21.4 H Plt Count (130 - 400 /CUMM) 204 MPV (7.4 - 10.4 FL) 7.2 L Gran % (42.2 - 75.2 %) 62.7 Lymphocytes % (20.5 - 51.1 %) 17.6 L Monocytes % (1.7 - 9.3 %) 14.4 H Eosinophils % (0 - 5 %) 5.3 H Basophils % (0.0 - 2.0 %) 0 L Absolute Granulocytes (1.4 - 6.5 /CUMM) 3.0 Absolute Lymphocytes (1.2 - 3.4 /CUMM) 0.8 L Absolute Monocytes (0.10 - 0.60 /CUMM) 0.7 H Absolute Eosinophils (0.0 - 0.7 /CUMM) 0.2 Absolute Basophils (0.0 - 0.2 /CUMM) 0 Platelet Estimate (ADEQUATE) ADEQUATE Hypochromic-Microcytic 1+ Poikilocytosis 2+ Anisocytosis 1+ PUBS MCHC (33.0 - 37.0 G/DL) 32.2 L Disposition Summary Disposition Principal Diagnosis: Acute fracture of the right hip Subacute/stress fracture of the left hip Additional Diagnosis: Alcohol dependence Urinary tract infection Chronic nicotine use Morbid obesity Discharge Disposition: SNF Discharge Instructions General Discharge Information Code Status: Full Code Patient's Diet: As tolerated Patient's Activity: As recommended by the physical therapy Follow-Up Instructions/Appts: Please follow-up the Omer Cope MD in 1 week of discharge Please follow-up with Dr. Alton Hernandez Also she'll need to follow up with [facility] as an outpatient for the incidental finding of nonspecific 1.8 cm focal signal change within the cervix on the MRI pelvis. Medications at Discharge Discharge Medications: Stop taking the following medications: Sulfamethoxazole/Trimethoprim (Bactrim Ds Tablet) 800 MG-160 MG TABLET ORAL TWICE DAILY Qty = 14 Continue taking these medications: Ondansetron (Zofran Odt) 4 MG TAB.RAPDIS 1 Tablet SUBLINGUAL THREE TIMES DAILY Qty = 10 Comments: NOT GIVEN IN HOSPITAL Start taking the following new medications: Metoprolol Tartrate (Metoprolol Tartrate) 25 MG TABLET 12.5 Milligram ORAL TWICE DAILY Qty = 30 No Refills Comments: Last Taken: 01/23/17 Time: 10AM Cyanocobalamin (Vitamin B-12) 1,000 MCG TABLET 1,000 Microgram ORAL DAILY Qty = 30 No Refills Comments: Last Taken: 01/23/17 Time: 10AM Folic Acid (Folic Acid) 1 MG TABLET 1 Milligram ORAL DAILY Qty = 30 No Refills Comments: Last Taken: 01/23/17 Time: 10AM Thiamine HCl (Vitamin B-1) 100 MG TABLET 100 Milligram ORAL DAILY Qty = 30 No Refills Comments: Last Taken: 01/23/17 Time: 10AM Multivitamin (One Daily Multivitamin) 1 EACH TABLET 1 Tablet ORAL DAILY Qty = 30 No Refills Comments: Last Taken: 01/23/17 Time: 10AM Ferrous Sulfate (Ferrous Sulfate) 325 MG (65 MG IRON) TABLET.DR 325 Milligram ORAL DAILY Qty = 30 No Refills Oxycodone HCl/Acetaminophen (Percocet 5-325 MG Tablet) 5 MG-325 MG TABLET 2 Tablet ORAL EVERY 8 HOURS NEEDED as needed for hip pain Qty = 12 No Refills Copies To: DANIELLE CANALES,SU [place]
[2017-01-21 07:42] LABS: ABSOLUTE BASOPHIL COUNT 0 /CUMM (0.0-0.2); ABSOLUTE EOSINOPHIL COUNT 0.1 /CUMM (0.0-0.7); ABSOLUTE GRANULOCYTE CT 2.7 /CUMM (1.4-6.5); ABSOLUTE LYMPH COUNT 1.1 /CUMM (1.2-3.4); ABSOLUTE MONOCYTE COUNT 0.5 /CUMM (0.10-0.60); BASOPHIL % 0 % (0.0-2.0); HEMATOCRIT 23.2 % (37-47); MEAN CORPUSCULAR HGB 30.5 PG (27.0-31.0); MEAN CORPUSCULAR HGB CONC 32.3 G/DL (33.0-37.0); MEAN CORPUSCULAR VOLUME 94.6 FL (81.0-99.0); MEAN PLATELET VOLUME 7.1 FL (7.4-10.4); PLATELET COUNT 228 /CUMM (130-400); RBC DISTRIBUTION WIDTH 22.4 % (11.5-14.5); RED BLOOD CELL CT 2.46 /CUMM (4.20-5.40); WHITE BLOOD CELL COUNT 4.4 /CUMM (4.8-10.8)
--- NOTE | 2017-01-21 07:45 | PN- Housestaff ---
VANGIE CANALES,[facility] 01/21/17 0745: Assessment/Plan Assessment: # Intractable hip pain CT scan done in ED revealed stress injury or subacute fracture in the left hip but no acute fracture is seen here. 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 * Percocet 2 tablets by mouth every 6 when necessary or pain 7-10 * Vcodeine 1 tablet every 6 hours for pain 4-6 * Acetaminophen 650 mg by mouth every 6 when necessary for pain less than 4 * MRI will be ordered as per orthopedic * PT recommended short-term rehabilitation # UTI * We'll DC trimethoprim sulfamethoxazole (started on 01/18) * Keep monitoring for signs of infection * Follow urine culture and blood cultures # HTN Patient was not on any antihypertensive medication when she presented to ED, we started her on metoprolol 12.5 mg twice daily to which her blood pressure was well controlled. * Continue metoprolol 12.5 mg twice a day. * Hold medication for blood pressure less than 100 # Alcohol detox * Ativan per [facility] protocol * Multivitamin, folic acid, thiamine. * Monitor BP closely #Normocytic anemia Patient has a low ferritin and serum iron(supposed to be microcytic), she also has a low B12(supposed to give microcytic) most likely the makes of these 2 give her normocytic anemia. * We will start iron supplement * We will start B12 supplement * Check CBC daily and follow anemia and infection #Hypocalcemia(corrected to albumin), with a low VIT D * Calcium supplement will be given * We will start 1000 vitamin D daily Heart healthy diet Moderate pain pathway DVTppx with SQH Full code. MARISAPEREZARTHUR 01/21/17 1116: Attending MD Review Statement Attending Statement Attending MD Statement: examined this patient, discuss w/resident/PA/ROPING MACHINE TENDER, agreed w/resident/PA/ROPING MACHINE TENDER, discussed with family, reviewed EMR data (avail), discussed with nursing, discussed with case mgmt, reviewed images, amended to note Attending Assessment/Plan: "Patient has intractable pain in right hip, after trauma. Even though x-ray done yesterday when in ER did not show any acute changes, patient had a fall again. CT pelvis mentions subacute healing fracture on left ischium, which may not be contributing to this pain. Patient is also found to have UTI, with symptoms of urinary frequency and burning, and urine positive for gram-negative rods. " ASSESSMENT # Right hip pain s/p trauma and fall. # UTI with cystitis # Alcoholism # Morbid obesity BMI 33.2 # Anemia multifactorial iron defeciency, Vit B12 defeciency. # History of gastric bypass surgery # Hypocalcemia # Hypomagnesemia. # Generalised weakness/physical deconditioning. # Noncompliance with history of hypertension PLAN - pain control - OT PT evaluation recommend STR - Orthopedic consulted recommend MRI pending. - f/u urine C/S and completed PO bactrim. - correct lytes, added thiamine, folic acid, vitamin B12, vitamin D supplementation, calcium. - Case management consult for short-term rehabilitation. d/c planning for weekend JANNETH MARQUES MD 01/21/17 1225: Subjective Follow-up For: # Right hip pain: # UTI with cystitis # Alcoholism # Morbid obesity # Anemia # Noncompliance with history of hypertension # History of gastric bypass surgery Subjective: Afebrile, WBCs WNL. Her BP was better controlled this am. Patient reported improvement of polyuria. Her pain is well controlled, pain only gets aggravated when she tried to ambulate. She denies any other current complaints. Review of Systems Constitutional: Reports: no symptoms. Objective Last 24 Hrs of Vital Signs/I&O Vital Signs Date Time Temp Pulse Resp B/P B/P Pulse O2 O2 Flow FiO2 Mean Ox Delivery Rate 01/21 1007 Room Air 01/21 0935 80 160/82 01/21 0619 98.8 83 20 120/60 98 Room Air 01/21 0600 99.2 79 18 124/58 01/21 0400 99.2 79 18 124/58 01/21 0200 99.2 79 18 124/58 01/21 0006 99.2 01/21 0000 99.2 79 18 124/58 01/20 2210 100.0 79 20 124/58 98 01/20 2041 130/70 01/20 1505 Room Air 01/20 1431 100 138/60 01/20 1411 99.1 100 20 138/60 99 Room Air Intake & Output 01/21 1600 01/21 0800 01/21 0000 Intake Total 120 Output Total 300 150 Balance -300 -30 Intake, Oral 120 Output, Urine 300 150 Physical Exam General Appearance: Alert, Oriented X3, Cooperative, No Acute Distress HEENT: Atraumatic, PERRLA, EOMI, Mucous Membr. moist/pink Cardiovascular: Regular Rate, Normal S1, Normal S2, No Murmurs Lungs: Clear to Auscultation, Normal Air Movement Abdomen: Normal Bowel Sounds, Soft, No Tenderness Neurological: Normal Speech Extremities: No Clubbing, No Cyanosis, trace edema Current Medications: Current Medications Sig/Faiza Start time Last Medication Dose Route Stop Time Status Admin Acetaminophen 650 MG Q6P PRN 01/19 2245 AC PO Acetaminophen/ 1 TAB Q6P PRN 01/19 2245 DC Hydrocodone Bitart PO Calcium 600 MG BID 01/20 1000 AC 01/21 PO 0935 Cholecalciferol 1,000 IU DAILY 01/20 1148 AC 01/21 PO 0935 Cyanocobalamin 1,000 MCG DAILY 01/20 1000 AC 01/21 PO 0935 Ergocalciferol 50,000 IU Q168 01/20 1000 AC 01/20 PO 0940 Ferrous Sulfate 325 MG DAILY 01/20 1000 AC 01/21 PO 0935 Folic Acid 1 MG DAILY 01/20 1000 AC 01/21 PO 0935 Heparin Sodium 5,000 UNIT Q8 01/20 0600 AC 01/21 (Porcine) SC 0612 Lorazepam 0 Q1P PRN 01/19 2245 AC IV Magnesium Sulfate 1 GM Q2H 01/21 0900 AC 01/21 Dextrose/Water 100 ML IV 01/21 1259 1229 Metoprolol Tartrate 12.5 MG BID 01/20 1147 AC 01/21 PO 0935 Multivitamins 1 TAB DAILY 01/20 1000 AC 01/21 PO 0935 Nicotine 21 MG DAILY 01/20 1000 AC TOP Oxycodone/ 1 TAB Q6P PRN 01/20 204 AC 01/20 Acetaminophen PO 204 Oxycodone/ 2 TAB Q6P PRN 01/19 224 AC Acetaminophen PO Patient Medication 1 ED .STK-MED ONE 01/20 1334 DC Teaching ED 01/20 1335 Thiamine HCl 100 MG DAILY 01/20 1000 AC 01/21 PO 0935 Trimethoprim/ 1 TAB BID 01/20 1000 AC 01/21 Sulfamethoxazole PO 0935 Last 24 Hrs of Lab/Timo Results Last 24 Hrs of Labs/Mics: Laboratory Tests 01/21/17 0610: Magnesium 1.6, CBC w Diff MAN DIFF ORDERED, RBC 2.46 L, MCV 94.6, MCH 30.5, RDW 22.4 H, MPV 7.1 L, Gran % 62.0, Lymphocytes % 25.7, Monocytes % 10.3 H, Eosinophils % 2.0, Basophils % 0 L, Absolute Granulocytes 2.7, Absolute Lymphocytes 1.1 L, Absolute Monocytes 0.5, Absolute Eosinophils 0.1, Absolute Basophils 0, Platelet Estimate ADEQUATE, Normocytic RBCs VERIFIED, Normochromic RBCs VERIFIED, Anisocytosis 1+, PUBS MCHC 32.3 L 01/20/17 2345: Urine Opiates Screen 112.00, Methadone Screen < 40, Barbiturate Screen < 60, Ur Phencyclidine Scrn < 6.00, Amphetamines Screen < 100, U Benzodiazepines Scrn < 85, Urine Cocaine Screen < 50, Urine Cannabis Screen < 5.00 Microbiology 01/20 2345 URINE ROUT: Urine Culture - RECD Assessment/Plan Problem List: 1. UTI (urinary tract infection) Pain Ratin Pain Location: right hep Pain Goal: Remain pain free Pain Plan: See A&P Tomorrow's Labs & Rationales: CBC
--- NOTE | 2017-01-21 10:44 | NUR ---
PHYSICAL THERAPY: ATTEMPTED TO SEE PT 5-7X THIS MORNING, EACH TIME FINDING NURSING IN ROOM OR AUTOMATIC DIE CUTTING MACHINE OPERATOR MOPPING FLOOR. PT IS NOW TEJA AT MRI. WILL FOLLOW UP LATER APPROPRIATE. THANK YOU.
[2017-01-21] MEDS ORDERED: ONE DAILY MULT1 EAC2 PO (12:21)
[2017-01-21] MEDS ORDERED: METOPROLOL TART25 M1 PO (12:21)
[2017-01-21] MEDS ORDERED: VITAMIN B-121000 MC3 PO (12:21)
[2017-01-21] MEDS ORDERED: VITAMIN B-1100 MG PO (12:21)
[2017-01-21] MEDS ORDERED: FOLIC ACID1 M1 PO (12:21)
--- NOTE | 2017-01-21 12:25 | Patient Discharge Instructions ---
Discharge Instructions General Discharge Information You were seen/treated for: UTI Hip pain because of old fracture Special Instructions: Please follow up with pcp within one week of DC Please repeat CBC at the short-term rehabilitation tomorrow morning Please follow with orthopedic within 1 week of discharge Please make appointment with gynecology to address the MRI finding on your cervix Acute Coronary Syndrome Inclusion Criteria At DC or during hospital stay patient has or had the following: ACS DIAGNOSIS No Discharge Core Measures Meds if any: Prescribed or Continued at Discharge Meds if any: NOT Prescribed or Continued at Discharge Congestive Heart Failure Inclusion Criteria At DC or during hospital stay patient has or had the following: CHF DIAGNOSIS No Discharge Core Measures Meds if any: Prescribed or Continued at Discharge Meds if any: NOT Prescribed or Continued at Discharge Cerebrovascular accident Inclusion Criteria At DC or during hospital stay patient has or had the following: CVA/TIA Diagnosis No Discharge Core Measures Meds if any: Prescribed or Continued at Discharge Meds if any: NOT Prescribed or Continued at Discharge Venous thromboembolism Inclusion Criteria VTE Diagnosis No VTE Type NONE VTE Confirmed by (Test) NONE Discharge Core Measures - Per Current guidelines, there needs to be overlap - treatment for the first 5 days of Warfarin therapy. - If discharged on Warfarin prior to 5 days of - overlap therapy, the patient will need to be - assessed for post discharge needs including - *Post discharge parental anticoagulation - *Warfarin and/or parental anticoagulation education - *Follow up date to check INR post discharge At least 5 days overlap therapy as Inpatient No Meds if any: Prescribed or Continued at Discharge Note: Overlap Therapy is Warfarin and Anticoagulant Meds if any: NOT Prescribed or Continued at Discharge
--- NOTE | 2017-01-21 13:57 | MRI REPORT ---
EXAMINATION: MR PELVIS WITHOUT CONTRAST CLINICAL INFORMATION: 71-year-old female with history of fall 4 months ago, presented with right hip pain. COMPARISON: Radiographs of the right hip done on 01/18/2017, CT of the pelvis done on 01/19/2017 and right hip radiograph done on 01/20/2017. TECHNIQUE: MRI of the pelvis without contrast was obtained using routine sequences. FINDINGS: There is a linear nondisplaced fracture identified in the region of the lesser trochanter of the right femur with significant bone marrow edema around the site of the fracture. A similar appearing fracture is also noted involving the left inferior pubic ramus, associated with adjacent bone marrow edema. Subtle focal area of nonspecific bone marrow edema is noted involving the left-sided ala of the sacrum adjacent to the SI joint (see the ferraro images). Possible differential diagnostic consideration would include posttraumatic changes versus insufficiency fracture or combination thereof, given the patient's history of fall 4 months ago. Incidental note is made of marked osteoarthrosis involving the left hip and [id number] osteoarthrosis involving the right hip. The visualized bowel loops appear decompressed. The urinary bladder is unremarkable. The uterus shows nonspecific, subtle approximately 1.8 cm T1 as well as T2 hyperintensity in the region of the cervix (see the ferraro images), and may represent nabothian cyst. Followup pelvic ultrasound may be considered for further full detail evaluation, if clinically appropriate. IMPRESSION: 1. Abnormal MRI of the pelvis showing features of healing fracture involving the lesser trochanter of the right femur, left inferior pubic ramus, and nonspecific subtle focal bone marrow edema pattern involving the left ala of the sacrum, may represent changes secondary to trauma (history of fall 4 months ago), insufficiency fracture, or combination thereof. 2. Incidental note is made of marked osteoarthrosis of the left and [id number] osteoarthrosis of the right hips. 3. Nonspecific 1.8 cm focal signal change within the cervix, not optimally characterized. Followup pelvic ultrasound may be considered for further full detail evaluation.
[2017-01-22 07:09] VITALS: BP 134/68
[2017-01-22 08:09] LABS: ABSOLUTE BASOPHIL COUNT 0 /CUMM (0.0-0.2); ABSOLUTE EOSINOPHIL COUNT 0.1 /CUMM (0.0-0.7); ABSOLUTE MONOCYTE COUNT 0.6 /CUMM (0.10-0.60); BASOPHIL % 0 % (0.0-2.0)
[2017-01-22 08:25] LABS: PT 12.2 SEC (9.4-12.5)
[2017-01-22 08:26] LABS: ABSOLUTE GRANULOCYTE CT 3.1 /CUMM (1.4-6.5); ABSOLUTE LYMPH COUNT 1.2 /CUMM (1.2-3.4); EOSINOPHIL % 2.7 % (0-5); GRANULOCYTE % 61.9 % (42.2-75.2); HEMATOCRIT 21.3 % (37-47); MEAN CORPUSCULAR HGB CONC 31.9 G/DL (33.0-37.0); MEAN CORPUSCULAR VOLUME 93.9 FL (81.0-99.0); PLATELET COUNT 207 /CUMM (130-400); RBC DISTRIBUTION WIDTH 22.6 % (11.5-14.5); RED BLOOD CELL CT 2.27 /CUMM (4.20-5.40)
--- NOTE | 2017-01-22 09:04 | PN- Orthopedic ---
Surgical Brief Attending Note Brief Attending Note: I met with the patient and with her sons and family members this morning to discuss management of the patient's right hip condition. I did discuss the MRI findings related to the right hip as well as the meaning and significance of the findings. We did discuss management options including the risks and benefits and expected outcomes of nonoperative management versus that of operative intervention. I did recommend operative stabilization of the femur with an intramedullary hip screw to help to protect the bone prophylactically against further fracture line propagation and eventual displacement. We did discuss the fact that operative stabilization of the proximal femur fracture would allow the patient to be mobilized out of bed immediately allowing essentially full weightbearing on the right lower extremity immediately which would be overall beneficial for her rehabilitation. I did also indicate that operative stabilization would likely reduce the patient's right hip girdle pain relatively rapidly. With respect to nonoperative management we did discuss prolonged weightbearing restrictions not allowing the patient weight-bear on the right lower extremity at all and that this would essentially restrict her to an out of bed to wheelchair existence, probably for several months. After discussion of the options the patient was still not ready to consent to surgery stating for now that she does not want surgery on her hip. I did ask the patient and family to take some time and to think about the things that we talked about this morning and to contact me or our practice through our answering service if they change their mind and decided that the patient would like to move forward with surgery on the right hip. I would recommend keeping the patient nothing by mouth for several more hours while she and the family think about things. If by lunchtime today they have not changed their mind then the patient can resume her diet and we will treat the patient according to her wishes nonoperatively for the foreseeable future. Of note the patient's vital signs have remained stable. She appears comfortable in bed. Additional clinical examination not performed today.
--- NOTE | 2017-01-22 09:32 | Event Note ---
Event Note Event Note: Got a call from nurse Francia around 8:45 am regarding 6.8/21.3 H/H for pt. Labs on computer screen still says pending. Called Heydi in heme lab and verified that value belonged to Ms. Arroyo. Verified results were positive. Ordered one unit of blood.
--- NOTE | 2017-01-22 11:58 | PN- Housestaff ---
BOO CANALES,LISANDRA 01/22/17 1158: Subjective Follow-up For: ANEMIA FRACTURE Subjective: Saw patient at bedside this a.m. She was sitting up and eating breakfast in chair. The family was in room. She had H&H of 6.8 and 21.3. I discussed need for blood transfusion this AM. She was amenable. She was consented and we will transfuse 1 unit of PRBC. Additionally, Dr. Dilip Lam orthopedic doctor came in and spoke to her regarding an elective hip surgery for her subacute left hip fracture. Patient is still considering her options. She is unsure whether she wants to go for surgery or not. We will leave her nothing by mouth until she decides. Review of Systems Constitutional: Reports: no symptoms. Cardiovascular: Reports: no symptoms. Respiratory: Reports: no symptoms. Gastrointestinal: Reports: no symptoms. Genitourinary: Reports: no symptoms. Musculoskeletal: Reports: no symptoms. Skin: Reports: no symptoms. Objective Last 24 Hrs of Vital Signs/I&O Vital Signs Date Time Temp Pulse Resp B/P B/P Pulse O2 O2 Flow FiO2 Mean Ox Delivery Rate 01/22 1106 88 134/68 01/22 0800 Room Air 01/22 0709 99.4 88 18 134/68 97 Room Air 01/21 2144 98.6 80 18 140/80 95 Room Air 01/21 2125 80 140/80 01/21 1331 98.5 87 20 146/62 99 Intake & Output 01/22 1600 01/22 0800 01/22 0000 Intake Total 0 600 Output Total 900 550 Balance -900 50 Intake, Oral 0 600 Output, Urine 900 550 Physical Exam General Appearance: Alert, Oriented X3, Cooperative, No Acute Distress HEENT: Atraumatic, PERRLA, EOMI Neck: Supple Cardiovascular: Regular Rate, Normal S1, Normal S2 Lungs: Normal Air Movement Abdomen: Soft, No Tenderness Assessment/Plan Assessment: #Acute blood loss anemia: Patient came in with a normocytic anemia and was worked up. She had a low B12 and iron levels. At that time was thought to be chronic process. Start her on B12 and iron supplement. However the past few days her H&H is trended from 8.2-7.5-6.8 today she will require transfusion. Patient denies any active obvious source of bleed. Denies any history of bright red blood per rectum or GI bleed. However she does say she does occasionally have dark stools. Source currently unknown. * Cont' iron supplement * Cont' B12 supplement * Check CBC daily * Consent for transfusion * 1u PRBC * Post-transfusion CBC * Guiac all stool * Con't monitor * Maintain IV access # Intractable hip pain CT scan done in ED revealed stress injury or subacute fracture in the left hip but no acute fracture is seen here. 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 * Percocet 2 tablets by mouth every 6 when necessary or pain 7-10 * Vicodin 1 tablet every 6 hours for pain 4-6 * Acetaminophen 650 mg by mouth every 6 when necessary for pain less than 4 * PT recommended short-term rehabilitation * Dr. Lam spoke to patient regarding possible orthopedic procedure. Patient is hesitant. She stated she'll make a decision later on today. She'll continue the nothing by mouth until decision is made. We will communicate decision to surgical PA. # UTI * We'll DC trimethoprim sulfamethoxazole (started on 01/18) * Keep monitoring for signs of infection * Follow urine culture and blood cultures # HTN Patient was not on any antihypertensive medication when she presented to ED, we started her on metoprolol 12.5 mg twice daily to which her blood pressure was well controlled. * Continue metoprolol 12.5 mg twice a day. * Hold medication for blood pressure less than 100 # Alcohol detox * Ativan per [facility] protocol * Multivitamin, folic acid, thiamine. * Monitor BP closely #Hypocalcemia(corrected to albumin), with a low VIT D * Calcium supplement will be given * We will start 1000 vitamin D daily Heart healthy diet Moderate pain pathway DVTppx with [facility] Full code. Problem List: 1. Chronic hip pain 2. UTI (urinary tract infection) Pain Ratin Pain Location: none Pain Goal: Remain pain free Pain Plan: none Tomorrow's Labs & Rationales: cbc bep DVT/Prophylaxis: pharmacological WEI CANALES,BARB 01/22/17 1158: Attending MD Review Statement Attending Statement Attending MD Statement: examined this patient, discuss w/resident/PA/[employer], agreed w/resident/PA/[employer], discussed with family, reviewed EMR data (avail), discussed with nursing, discussed with case mgmt, reviewed images, amended to note Attending Assessment/Plan: 71-year-old female with past medical history of alcoholism, anemia, gastric bypass presented with a fall and right hip pain. Drop in hemoglobin and hematocrit noted. Patient and seen by Dr. Lam this morning who recommended operative stabilization of the femur with an intramedullary hip screw. Family has elected make a decision regarding the procedure versus conservative management. Patient is currently nothing by mouth. I have discussed with the family to make the decision and let Dr. Lam know as soon as possible. Patient says she had colonoscopy in the past but does not remember when, i did not find any colonoscopy report in [employer]. Denies any blood per rectum/black stools. Denies any chest pain, trouble breathing, pain anywhere else in the body. As per the patient she just had her right hip when she fell, denies hitting her head . On examination: Skin overlying the hip looks normal, no local bruise or deformity appreciated. Recommendation: Agree with one unit of transfusion. Recheck CBC post transfusion. Guiac stool Continue bowel regimen to avoid constipation.
[2017-01-22 16:00] VITALS: BP 120/70
[2017-01-22 20:07] LABS: ABSOLUTE BASOPHIL COUNT 0 /CUMM (0.0-0.2); ABSOLUTE EOSINOPHIL COUNT 0.2 /CUMM (0.0-0.7); ABSOLUTE GRANULOCYTE CT 3.3 /CUMM (1.4-6.5); ABSOLUTE LYMPH COUNT 1.1 /CUMM (1.2-3.4); ABSOLUTE MONOCYTE COUNT 0.5 /CUMM (0.10-0.60); BASOPHIL % 0 % (0.0-2.0); EOSINOPHIL % 3.2 % (0-5); GRANULOCYTE % 64.6 % (42.2-75.2); HEMATOCRIT 25.3 % (37-47); MEAN CORPUSCULAR HGB 30.3 PG (27.0-31.0); MEAN CORPUSCULAR HGB CONC 32.3 G/DL (33.0-37.0); MEAN CORPUSCULAR VOLUME 93.8 FL (81.0-99.0); MEAN PLATELET VOLUME 7.2 FL (7.4-10.4); PLATELET COUNT 210 /CUMM (130-400); RBC DISTRIBUTION WIDTH 21.2 % (11.5-14.5); RED BLOOD CELL CT 2.69 /CUMM (4.20-5.40); WHITE BLOOD CELL COUNT 5.2 /CUMM (4.8-10.8)
[2017-01-22 22:43] VITALS: BP 166/70
[2017-01-23 06:29] VITALS: BP 152/70
[2017-01-23 09:09] LABS: ABSOLUTE BASOPHIL COUNT 0 /CUMM (0.0-0.2); ABSOLUTE EOSINOPHIL COUNT 0.2 /CUMM (0.0-0.7); ABSOLUTE LYMPH COUNT 0.8 /CUMM (1.2-3.4); ABSOLUTE MONOCYTE COUNT 0.7 /CUMM (0.10-0.60); BASOPHIL % 0 % (0.0-2.0); EOSINOPHIL % 5.3 % (0-5); GRANULOCYTE % 62.7 % (42.2-75.2); HEMATOCRIT 24.8 % (37-47); MEAN CORPUSCULAR HGB 30.3 PG (27.0-31.0); MEAN CORPUSCULAR HGB CONC 32.2 G/DL (33.0-37.0); MEAN CORPUSCULAR VOLUME 94.4 FL (81.0-99.0); MEAN PLATELET VOLUME 7.2 FL (7.4-10.4); PLATELET COUNT 204 /CUMM (130-400); RBC DISTRIBUTION WIDTH 21.4 % (11.5-14.5); RED BLOOD CELL CT 2.63 /CUMM (4.20-5.40); WHITE BLOOD CELL COUNT 4.7 /CUMM (4.8-10.8)
--- NOTE | 2017-01-23 09:52 | PN- Orthopedic ---
Surgical Brief Attending Note Brief Attending Note: The patient and family have decided that they do not want to move forward with the recommended stabilization surgery for the patient's right hip fracture. ( ORIF with long cephalomedullary nail). Therefore with respect to the patient's desired nonoperative management of her fracture she will need to protect the right lower extremity as best as possible with protected weightbearing. She can be toe-touch weightbearing on the right lower extremity to minimize stress about the proximal femur and right hip. This should be with use of a walker and manual assistance as needed. The patient should be mobilized out of bed with therapy with the goal of gait training with protected weightbearing on the right lower extremity. If the patient cannot perform toe-touch weightbearing on the right lower extremity safely, she will then need to avoid weightbearing entirely and be out of bed to wheelchair only. Discomfort related to the patient's right hip fracture pain should be managed with Tylenol or other light oral analgesics. The patient seemingly will require transfer to a retirement facility for a while unless adequate home services and home support can be provided. The patient should be seen in our practice ( [facility]) in about 3 weeks so that she can undergo repeat x -rays of the right hip to check the status of potential fracture healing activity. The patient or SNF should contact the office to have the patient seen sooner than this if there is any other concerns or problems that arise before then.
--- NOTE | 2017-01-23 09:56 | PN- Housestaff ---
See Addendum Subjective Follow-up For: UTI Anemia Pain secondary to Subacute hip fracture Subjective: Afebrile, hemoglobin is roughly stable posttransfusion. She was sitting on chair looks relaxed and comfortable. No acute overnight events reported. Patient denies chest pain, shortness breath, abdominal pain, bloody stool, dizziness or lightheadedness. She still complaining of right hip pain with ambulation. Review of Systems Constitutional: Reports: no symptoms. Objective Last 24 Hrs of Vital Signs/I&O Vital Signs Date Time Temp Pulse Resp B/P B/P Pulse O2 O2 Flow FiO2 Mean Ox Delivery Rate 01/23 0817 83 152/70 01/23 0800 Room Air 01/23 0629 98.5 83 20 152/70 97 Room Air 01/22 2243 99.0 89 22 166/70 98 Room Air 01/22 2210 89 166/70 01/22 1600 98.2 78 20 120/70 95 01/22 1106 88 134/68 Intake & Output 01/23 1600 01/23 0800 01/23 0000 Intake Total 240 480 Output Total 801 Balance 240 -321 Intake, Oral 240 480 Output, Stool 1 Output, Urine 800 Physical Exam General Appearance: Alert, Oriented X3, Cooperative, No Acute Distress HEENT: Atraumatic, PERRLA, EOMI, Mucous Membr. moist/pink Cardiovascular: Regular Rate, Normal S1, Normal S2, No Murmurs Lungs: Clear to Auscultation, Normal Air Movement Abdomen: Soft, No Tenderness Neurological: Normal Speech Extremities: No Clubbing, No Cyanosis, No Edema Assessment/Plan Assessment: #Microcytic Anemia Patient most likely has chronic process secondary to low iron and B12 for which we start her on B12 and iron supplement. However the past few days her H&H is trended from 8.2-7.5-6.8, yesterday she required transfusion. Patient denied any active obvious source of bleed. Denied any history of bright red blood per rectum or GI bleed. However she does say she does occasionally have dark stools. Patient hemoglobin posttransfusion was 8.2 this morning is 8. Patient was found to be guaiac negative this morning. * Cont' iron supplement * Cont' B12 supplement * If patient is guaiac negative, she will most likely be discharged later today with an instruction to repeat CBC at the short-term rehabilitation. # Intractable hip pain CT scan done in ED revealed stress injury or subacute fracture in the left hip but no acute fracture can be seen. 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 * Percocet 2 tablets by mouth every 6 when necessary or pain 7-10 * Vicodin 1 tablet every 6 hours for pain 4-6 * Acetaminophen 650 mg by mouth every 6 when necessary for pain less than 4 * PT recommended short-term rehabilitation * Yesterday Dr. Lam spoke to patient regarding possible orthopedic procedure. Patient does not want any surgery currently. # UTI Already received a course of trimethoprim sulfamethoxazole. * Keep monitoring for signs of infection * Follow urine culture and blood cultures # HTN Patient was not on any antihypertensive medication when she presented to ED, we started her on metoprolol 12.5 mg twice daily to which her blood pressure was well controlled. * Continue metoprolol 12.5 mg twice a day. * Hold medication for blood pressure less than 100 # Alcohol detox * Ativan per [facility] protocol * Multivitamin, folic acid, thiamine. * Monitor BP closely #Hypocalcemia(corrected to albumin), with a low VIT D * Calcium supplement will be given * We will start 1000 vitamin D daily * He will be instructed to addressed hypocalcemia and low vital D with her PCP Heart healthy diet Moderate pain pathway DVTppx with [facility] Full code. Problem List: 1. UTI (urinary tract infection) 2. Arthritis Pain Ratin Pain Location: right hip Pain Goal: Remain pain free Pain Plan: See A&P Tomorrow's Labs & Rationales: CBC to f/u H&H
--- NOTE | 2017-01-23 12:02 | NUR ---
LAST EVENING (01/22/17) MST REPORTED TO THIS RN TODAY, THAT PATIENT WAS GUAIAC NEGATIVE. MD VENCES AWARE. WILL CONTINUE TO MONITOR.
[2017-01-23] MEDS ORDERED: FERROUS SULFAT325 M2 PO (12:53)
[2017-01-23] MEDS ORDERED: PERCOCET 5-3251 EACH PO (12:55)
[2017-01-23 15:44] VITALS: BP 152/70
[2017-01-23 15:52] VITALS: BP 140/70
== END 2017-01-23 16:40 | DRG 543 ==
LOC: ERH 16:01 → ERHI 23:04 → 2NA 23:04 → ENRESERV 23:35 → 2NA 01-20 00:39
PROVIDERS: Physician Assistant; Physician Assistant Medical; Student in an Organized Health Care Education/Training Program; ADMIT Internal Medicine
PROC: 30253N1 (ICD-10-PCS; principal; 2017-01-22)
DX: M84.350A Stress fracture, pelvis, initial encounter for fracture (principal); N39.0 Urinary tract infection, site not specified; E83.51 Hypocalcemia; I10 Essential (primary) hypertension; F10.20 Alcohol dependence, uncomplicated; D50.9 Iron deficiency anemia, unspecified; E66.01 Morbid (severe) obesity due to excess calories; M25.551 Pain in right hip; R26.2 Difficulty in walking, not elsewhere classified; F17.210 Nicotine dependence, cigarettes, uncomplicated; F10.21 Alcohol dependence, in remission; K21.9 Gastro-esophageal reflux disease without esophagitis; Y90.0 Blood alcohol level of less than 20 mg/100 ml; Z68.33 Body mass index [BMI] 33.0-33.9, adult
CPT/HCPCS: 2NASP; 75633; ERO; 36415; 73502-RT; 80307; 81001; 82436; 86920; 87040; 87086; 93005; 93010; 97110-GO; 97116-GO; 97161-GP; 97530-GO; G0480; J1644; J3420; J3490; P9016